=== PATIENT | male | born 1965 | race Caucasian/White ===

== ENCOUNTER 2016-10-01 12:03 | Observation (INO) | payer OTHER ==
[~2016-10-01] VITALS: Ht 188 cm; Wt 138.6 kg
[2016-10-01] MEDS ORDERED: SODIUM CHLORIDE 0.9% 1,000 ML IV ONE (12:20)
[2016-10-01] MEDS ORDERED: PLEASE ENTER ALLERGIES MC SCH ×2 (12:30)
[2016-10-01] MEDS ORDERED: ASPIRIN 81 MG TABLET CHEW PO ONE (12:30)
[2016-10-01] MEDS ORDERED: NITROGLYCERIN SINGLE TAB 0.4 MG SL PRN (12:30)
[2016-10-01 12:40] LABS: HEMATOCRIT 47.5 % (39.2-51.8); HEMOGLOBIN 15.9 g/dL (13.7-18.0); WHITE BLOOD COUNT 7.6 x10^3/uL (3.4-10)
[2016-10-01 12:53] LABS: BLOOD UREA NITROGEN 17 mg/dL (7-18)
[2016-10-01] MEDS ORDERED: NITROGLYCERIN SINGLE TAB 0.4 MG SL ONE (13:02)
[2016-10-01] MEDS ORDERED: ASPIRIN 81 MG TABLET CHEW ONE (13:02)
[2016-10-01 13:07] LABS: IS PT STATUS REG ER OR PRE ER? YES
[2016-10-01] MEDS ORDERED: ACETAMINOPHEN 325 MG TABLET PO PRN (14:30)
[2016-10-01] MEDS ORDERED: morphine SULFATE 10 MG/ML, 1ML IVPush PRN (14:30)
[2016-10-01] MEDS ORDERED: hydrALAzine 20 MG/ML, 1ML IVPush PRN (14:30)
[2016-10-01] MEDS ORDERED: ONDANSETRON 2MG/ML, 2ML IVPush PRN (14:30)
[2016-10-01] MEDS ORDERED: ENALAPRILAT 1.25 MG/ML, 2ML IVPush PRN (14:30)
[2016-10-01] MEDS ORDERED: POLYETHYLENE GLYCOL 17 GM PACKET PO PRN (14:30)
[2016-10-01] MEDS ORDERED: BISACODYL 10 MG SUPP PR PRN (14:30)
[2016-10-01] MEDS ORDERED: DOCUSATE 100 MG CAPSULE PO PRN (14:30)
[2016-10-01] MEDS ORDERED: OXYcodone IR 5MG TABLET PO PRN (14:30)
[2016-10-01] MEDS: PANTOPRAZOLE 40 MG IV IVPush SCH (15:22)
[2016-10-01] MEDS: HEPARIN 5,000 UNITS/ML, 1ML SQ SCH ×2 (15:22→22:59)
[2016-10-01 16:34] VITALS: BP 132/84
[2016-10-01] MEDS: NITROGLYCERIN 0.4 MG BOTTLE (25 TABS) SL PRN ×4 (17:13→21:31)
[2016-10-01 17:19] VITALS: BP 114/77
[2016-10-01] MEDS ORDERED: ALUMINUM/MAG/SIMETHICONE 30 ML UDC PO PRN (18:30)
[2016-10-01 19:36] LABS: IS PT STATUS REG ER OR PRE ER? NO
[2016-10-01 20:09] VITALS: BP 126/78
[2016-10-01 21:01] VITALS: BP 106/70
[2016-10-01 21:18] VITALS: BP 115/72
[2016-10-01 21:30] VITALS: BP 113/65
[2016-10-02 01:17] VITALS: BP 95/61
[2016-10-02] MEDS: SODIUM CHLORIDE 0.9% 1,000 ML IV SCH ×2 (01:24→09:00)
[2016-10-02 01:44] LABS: IS PT STATUS REG ER OR PRE ER? NO
[2016-10-02 04:48] LABS: HEMATOCRIT 43.2 % (39.2-51.8); HEMOGLOBIN 14.4 g/dL (13.7-18.0); WHITE BLOOD COUNT 6.5 x10^3/uL (3.4-10)
[2016-10-02 05:10] LABS: ASPARTATE AMINO TRANSFERASE 21 U/L (15-37); BLOOD UREA NITROGEN 14 mg/dL (7-18)
[2016-10-02] MEDS ORDERED: ASPIRIN 325 MG TABLET EC PO SCH (06:00)
[2016-10-02 08:24] VITALS: BP 111/72
[2016-10-02] MEDS: HEPARIN 5,000 UNITS/ML, 1ML SQ SCH ×2 (08:35→14:23)
[2016-10-02] MEDS: PANTOPRAZOLE 40 MG IV IVPush SCH (08:35)
[2016-10-02] MEDS ORDERED: OMEP-110 PO (13:05)
[2016-10-02 13:29] VITALS: BP 124/81
== END 2016-10-02 15:07 | disposition home or self-care (01) ==
LOC: ED 13:29 → EDIP 13:30 → INTOOBSV 13:30 → ED 13:51 → 5SO 14:51 → UNDODISIN 10-02 15:07
PROVIDERS: ADMIT Internal Medicine; ATTEND Internal Medicine
DX: R07.2 Precordial pain (principal); R61 Generalized hyperhidrosis; E66.9 Obesity, unspecified; K21.9 Gastro-esophageal reflux disease without esophagitis; Z80.0 Family history of malignant neoplasm of digestive organs
CPT/HCPCS: 36415; 71010; 78452; 80048; 80053; 80061; 81003; 82040; 83036; 83735; 83880; 84439; 84443; 84484; 85025; 93005; 93017; 93306; 96361; 96372; 96374; 96375; 96376; 99285; A9502; C9113; C9898; G0378; J1644; J2270; J7030